=== PATIENT | female | born 1985 ===

== ENCOUNTER 2021-08-29 14:15 | Inpatient (IN) | payer OTHER ==
[~2021-08-29] VITALS: Ht 167.6 cm; Wt 99.8 kg
== END 2021-09-09 12:38 | disposition home or self-care (01) | DRG 807 ==
LOC: SURH 09-02 14:15 → LDR 09-07 03:12 → OB/GYN 09-07 03:12
PROVIDERS: ADMIT Obstetrics & Gynecology Maternal & Fetal Medicine; ATTEND Obstetrics & Gynecology Maternal & Fetal Medicine
PROC: 10E0XZZ Delivery of Products of Conception, External Approach (ICD-10-PCS; principal; 2021-09-07)
PROC: 4A1HXCZ Monitoring of Products of Conception, Cardiac Rate, External Approach (ICD-10-PCS; 2021-09-07)
PROC: 0HQ9XZZ Repair Perineum Skin, External Approach (ICD-10-PCS; 2021-09-07)
DX: O70.0 First degree perineal laceration during delivery (principal); Z37.0 Single live birth; Z3A.40 40 weeks gestation of pregnancy; Z20.822 Contact with and (suspected) exposure to COVID-19